=== PATIENT | female | born 2005 | race Caucasian/White ===

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

== ENCOUNTER 2024-03-11 18:41 | Emergency (ER) | payer BC, OTHER ==
[2024-03-11] MEDS: SODIUM CHLORIDE 0.9% 1,000 ML IV STA (19:18)
--- NOTE | 2024-03-11 19:38 | ED ---
Dizziness HPI - General Chief Complaint: Dizziness Stated Complaint: Near syncope, dizziness, vomiting, memory loss Time Seen by Provider: 03/11/24 18:55 Source: patient, family, RN notes reviewed Mode of arrival: ambulatory Limitations: no limitations - History of Present Illness Initial Comments: This is a 18-year-old female with no significant past medical history who presents emergency department chief complaint of near syncope. 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 Patient states that she was helped down the next day and began to experience double vision, ringing in her ears. Patient denies passing out at this time. Currently, patient states that she is feeling well. She denies symptoms of chest pain, chest pressure, palpitations, dizziness, lightheadedness or fatigue. States that she has a mild headache. Patient states that she did symptoms like this previously before while she was at a track meet. She states that she has not consumed much water today. - Related Data Home Medications Medication Instructions Recorded Confirmed Fluticasone Nasal [place] [Flonase 2 spr EA NOSTRIL HS 01/22/21 01/24/21 Nasal [place]] Loratadine [Claritin] 10 mg PO HS 01/22/21 01/24/21 Montelukast Sodium [Singulair] 10 mg PO HS 01/22/21 01/24/21 Calcium Carbonate [Calcium] 190 mg PO TID 01/24/21 01/24/21 Previous Rx's Medication Instructions Recorded HYDROcodone/APAP 5-325MG [[place] 1 tab PO Q6HR PRN 7 Days #30 tab 01/24/21 5-325] Allergies Allergy/AdvReac Type Severity Reaction Status Date / Time grass pollen Allergy Rash/Hives Verified 03/11/24 18:47 mold Allergy Unknown Verified 03/11/24 18:47 Review of Systems ROS Statement: Those systems with pertinent positive or pertinent negative responses have been documented in the HPI. ROS Other: All systems not noted in ROS Statement are negative. Past Medical History Additional Past Medical History / Comment(s): seasonal allergies. calcium deficiency History of Any Multi-Drug Resistant Organisms: None Reported Past Surgical History: Ear Surgery Additional Past Surgical History / Comment(s): ear tubes x3 Past Anesthesia/Blood Transfusion Reactions: Postoperative Nausea & Vomiting (PO NV) Past Psychological History: No Psychological Hx Reported Smoking Status: Never smoker Past Alcohol Use History: None Reported Past Drug Use History: None Reported - Past Family History Mother Family Medical History: No Reported History General Exam Limitations: no limitations General appearance: alert, in no apparent distress Head exam: Present: atraumatic, normocephalic, normal inspection Eye exam: Present: normal appearance, PERRL, EOMI. Absent: scleral icterus, conjunctival injection, periorbital swelling ENT exam: Present: normal exam, mucous membranes moist Neck exam: Present: normal inspection. Absent: tenderness, meningismus, lymphadenopathy Respiratory exam: Present: normal lung sounds bilaterally. Absent: respiratory distress, wheezes, rales, rhonchi, stridor Cardiovascular Exam: Present: regular rate, normal rhythm, normal heart sounds. Absent: systolic murmur, diastolic murmur, rubs, gallop, clicks GI/Abdominal exam: Present: soft, normal bowel sounds. Absent: distended, tenderness, guarding, rebound, rigid Extremities exam: Present: normal inspection, full ROM, normal capillary refill. Absent: tenderness, pedal edema, joint swelling, calf tenderness Back exam: Present: normal inspection Neurological exam: Present: alert, oriented X3, CN II-XII intact Psychiatric exam: Present: normal affect, normal mood Skin exam: Present: warm, dry, intact, normal color. Absent: rash Course Vital Signs 03/11/24 03/11/24 03/11/24 18:43 20:18 20:58 Temperature 98.3 F 98.6 F Pulse Rate 63 55 L 56 L Respiratory 18 16 12 Rate Blood Pressure 144/89 141/76 130/81 O2 Sat by Pulse 100 100 100 Oximetry Medical Decision Making - Medical Decision Making Was pt. sent in by a medical professional or institution (, PA, CSW, urgent care, hospital, or half-way...) When possible be specific @ -No Did you speak to anyone other than the patient for history (EMS, parent, family, police, friend...)? What history was obtained from this source @ -spoke to the patient's mother at bedside who denies personal history of the patient of general heart disease and denies family history of congenital heart disease or sudden cardiac . Did you review nursing and triage notes (agree or disagree)? Why? @ -I reviewed and agree with nursing and triage notes Were old charts reviewed (outside hosp., previous admission, EMS record, old EKG, old radiological studies, urgent care reports/EKG's, half-way records)? Report findings @ -No old charts were reviewed Differential Diagnosis (chest pain, altered mental status, abdominal pain women, abdominal pain men, vaginal bleeding, weakness, fever, dyspnea, syncope, headache, dizziness, GI bleed, back pain, seizure, CVA, palpatations, mental health, musculoskeletal)? @ -Differential Syncope: Valvular disease, hypertrophic cardiomyopathy, pulmonary embolism, tamponade, tachycardia, bradycardia, [place], hypovolemia, hemorrhage, dissection, anemia, intracranial hemorrhage, seizure, hypoglycemia, carbon monoxide poisoning, this is not meant to be an all-inclusive list. EKG interpreted by me (3pts min.). @ -completed at 1928: sinus bradycardia, ventricular rate 57, VT interval 156, QTc 450. No acute signs of ischemia. X-rays interpreted by me (1pt min.). @ -None done CT interpreted by me (1pt min.). @ -None done U/S interpreted by me (1pt. min.). @ -None done What testing was considered but not performed or refused? (CT, X-rays, U/S, labs)? Why? @ -None What meds were considered but not given or refused? Why? @ -None Did you discuss the management of the patient with other professionals (professionals i.e. , PA, CSW, lab, RT, psych nurse, social professionals, tin container straightener, teacher, fisheries technical officer, rn case manager hospice)? Give summary @ -No Was smoking cessation discussed for >3mins.? @ -No Was critical care preformed (if so, how long)? @ -No Were there social determinants of health that impacted care today? How? (Homelessness, low income, unemployed, alcoholism, drug addiction, tr ansportation, low edu. Level, literacy, decrease access to med. care, prison, rehab)? @ -No Was there de-escalation of care discussed even if they declined (Discuss DNR or withdrawal of care, Hospice)? DNR status @ -No What co-morbidities impacted this encounter? (DM, HTN, Smoking, COPD, CAD, Cancer, CVA, ARF, Chemo, Hep., AIDS, mental health diagnosis, sleep apnea, morbid obesity)? @ -None Was patient admitted / discharged? Hospital course, mention meds given and route, prescriptions, significant lab abnormalities, going to OR and other pertinent info. @ -Discharged. 17-year-old female with no syncope. Patient is resting comfortably on room air no signs of acute distress. She states that she is feeling markedly better after the event that occurred this afternoon. She is symptomatically treated with fluids with concern for dehydration pending labs. EKG showing sinus rhythm with no acute signs of ischemia. Reveal a mild anemia with a hemoglobin of 10.9 and MCV low at 76.7. CMP unremarkable. Urinalysis without signs infection, hCG negative. On reevaluation the patient after fluid she states that she is feeling much better headache has resolved. Recommend the patient follows up with her primary care provider due to findings of mild anemia. All questions answered at bedside and strict return. Discussed with patient she is verbalized understanding. Case discussed with Dr. Galaviz Undiagnosed new problem with uncertain prognosis? @ -No Drug Therapy requiring intensive monitoring for toxicity (Heparin, Nitro, Insulin, Cardizem)? @ -No Were any procedures done? @ -No Diagnosis/symptom? @ -Near-syncope Acute, or Chronic, or Acute on Chronic? @ -Acute Uncomplicated (without systemic symptoms) or Complicated (systemic symptoms)? @ -Uncomplicated Side effects of treatment? @ -No Exacerbation, Progression, or Severe Exacerbation? @ -No Poses a threat to life or bodily function? How? (Chest pain, [place], [place], pneumonia, PE, COPD, DKA, ARF, appy, cholecystitis, CVA, Diverticulitis, Homicidal, Suicidal, threat to staff... and all critical care pts) @ -No - Lab Data Result diagrams: 03/11/24 19:19 03/11/24 19:19 Lab Results 03/11/24 03/11/24 03/11/24 Range/Units 19:19 19:19 20:03 WBC 7.3 (4.0-11.0) k/uL RBC 4.52 (3.80-5.40) m/uL Hgb 10.9 L (11.4-16.0) gm/dL Hct 34.7 (34.0-46.0) % MCV 76.7 L (80.0-100.0) fL MCH 24.1 L (25.0-35.0) pg MCHC 31.4 (31.0-37.0) g/dL RDW 14.8 (11.5-15.5) % Plt Count 254 (150-450) k/uL MPV 10.0 Neutrophils % 69 % Lymphocytes % 20 % Monocytes % 8 % Eosinophils % 1 % Basophils % 1 % Neutrophils # 5.0 (1.3-7.7) k/uL Lymphocytes # 1.4 (1.0-4.8) k/uL Monocytes # 0.6 (0-1.0) k/uL Eosinophils # 0.1 (0-0.7) k/uL Basophils # 0.1 (0-0.2) k/uL Hypochromasia Marked Sodium 140 (137-145) mmol/L Potassium 4.2 (3.5-5.1) mmol/L Chloride 106 (98-107) mmol/L Carbon Dioxide 26 (22-30) mmol/L Anion Gap 8 mmol/L BUN 13 (7-17) mg/dL Creatinine 0.70 (0.52-1.04) mg/dL Est GFR (CKD-EPI)AfAm >90 (>60 ml/min/1.73 sqM) Est GFR (CKD-EPI)NonAf >90 (>60 ml/min/1.73 sqM) Glucose 97 (74-99) mg/dL Calcium 10.0 (8.4-10.2) mg/dL Total Bilirubin 0.5 (0.2-1.3) mg/dL AST 32 (14-36) U/L ALT 16 (4-34) U/L Alkaline Phosphatase 51 (38-126) U/L Total Protein 7.7 (6.3-8.2) g/dL Albumin 5.0 (3.5-5.0) g/dL Urine Color Colorless Urine Appearance Clear (Clear) Urine pH 5.5 (5.0-8.0) Ur Specific [place] 1.010 (1.001-1.035) Urine Protein Negative (Negative) Urine Glucose (UA) Negative (Negative) Urine Ketones Negative (Negative) Urine Blood Negative (Negative) Urine Nitrite Negative (Negative) Urine Bilirubin Negative (Negative) Urine Urobilinogen <2.0 (<2.0) mg/dL Ur Leukocyte Esterase Negative (Negative) Urine HCG, Qual (Not Detectd) 03/11/24 Range/Units 20:03 WBC (4.0-11.0) k/uL RBC (3.80-5.40) m/uL Hgb (11.4-16.0) gm/dL Hct (34.0-46.0) % MCV (80.0-100.0) fL MCH (25.0-35.0) pg MCHC (31.0-37.0) g/dL RDW (11.5-15.5) % Plt Count (150-450) k/uL MPV Neutrophils % % Lymphocytes % % Monocytes % % Eosinophils % % Basophils % % Neutrophils # (1.3-7.7) k/uL Lymphocytes # (1.0-4.8) k/uL Monocytes # (0-1.0) k/uL Eosinophils # (0-0.7) k/uL Basophils # (0-0.2) k/uL Hypochromasia Sodium (137-145) mmol/L Potassium (3.5-5.1) mmol/L Chloride (98-107) mmol/L Carbon Dioxide (22-30) mmol/L Anion Gap mmol/L BUN (7-17) mg/dL Creatinine (0.52-1.04) mg/dL Est GFR (CKD-EPI)AfAm (>60 ml/min/1.73 sqM) Est GFR (CKD-EPI)NonAf (>60 ml/min/1.73 sqM) Glucose (74-99) mg/dL Calcium (8.4-10.2) mg/dL Total Bilirubin (0.2-1.3) mg/dL AST (14-36) U/L ALT (4-34) U/L Alkaline Phosphatase (38-126) U/L Total Protein (6.3-8.2) g/dL Albumin (3.5-5.0) g/dL Urine Color Urine Appearance (Clear) Urine pH (5.0-8.0) Ur Specific [place] (1.001-1.035) Urine Protein (Negative) Urine Glucose (UA) (Negative) Urine Ketones (Negative) Urine Blood (Negative) Urine Nitrite (Negative) Urine Bilirubin (Negative) Urine Urobilinogen (<2.0) mg/dL Ur Leukocyte Esterase (Negative) Urine HCG, Qual Not Detected (Not Detectd) Disposition Clinical Impression: Near syncope, Dizziness, Anemia Disposition: HOME SELF-CARE Condition: Good Instructions (If sedation given, give patient instructions): Dizziness (ED), Anemia (ED) Additional Instructions: Return to the emergency department for any new or worsening symptoms. Recommend they follow-up with your primary care provider next week for further evaluation of lab work finding suggestive of anemia. Is patient prescribed a controlled substance at d/c from ED?: No Referrals: Garo Kulkarni MD [Primary Care Provider] - 1-2 days Time of Disposition: 20:46
[2024-03-11 19:47] LABS: ALT 16 U/L (4-34); AST 32 U/L (14-36); African American GFR (CKD) >90 (>60 ml/min/1.73 sqM); Alkaline Phosphatase 51 U/L (38-126); Anion Gap 8 mmol/L; Blood Urea Nitrogen 13 mg/dL (7-17); Carbon Dioxide 26 mmol/L (22-30); Chloride 106 mmol/L (98-107); Glucose 97 mg/dL (74-99); Non-African American GFR(CKD) >90 (>60 ml/min/1.73 sqM); Potassium 4.2 mmol/L (3.5-5.1); Sodium 140 mmol/L (137-145); Total Bilirubin 0.5 mg/dL (0.2-1.3); Total Protein 7.7 g/dL (6.3-8.2)
[2024-03-11 20:09] LABS: Basophils # (A) 0.1 k/uL (0-0.2); Basophils % (A) 1 %; Eosinophils # (A) 0.1 k/uL (0-0.7); Eosinophils % (A) 1 %; HCT 34.7 % (34.0-46.0); HGB 10.9 gm/dL (11.4-16.0); Hypochromasia Marked; Lymphocytes # (A) 1.4 k/uL (1.0-4.8); Lymphocytes % (A) 20 %; MCH 24.1 pg (25.0-35.0); MCHC 31.4 g/dL (31.0-37.0); MCV 76.7 fL (80.0-100.0); Monocytes # (A) 0.6 k/uL (0-1.0); Monocytes % (A) 8 %; Neutrophils % (A) 69 %; Platelet Count 254 k/uL (150-450); RBC 4.52 m/uL (3.80-5.40); RDW 14.8 % (11.5-15.5); WBC 7.3 k/uL (4.0-11.0)
[2024-03-11 20:33] LABS: Appearance,Urine Clear (Clear); Bilirubin,Urine Negative (Negative); Blood,Urine Negative (Negative); Color,Urine Colorless; Glucose,Urine (UA) Negative (Negative); Ketones,Urine Negative (Negative); Leukocyte Esterase,Urine Negative (Negative); Nitrite,Urine Negative (Negative); PH, Urine 5.5 (5.0-8.0); Protein,Urine Negative (Negative); Urobilinogen,Urine <2.0 mg/dL (<2.0)
[2024-03-11 21:00] VITALS: BP 130/81; PULSE 56; RESP 12; TEMP 98.6
== END 2024-03-11 21:01 | disposition home or self-care (01) ==
LOC: EC 18:41
DX: R55 Syncope and collapse (principal); D64.9 Anemia, unspecified; R42 Dizziness and giddiness; Z91.048 Other nonmedicinal substance allergy status
CPT/HCPCS: 36415; 80053; 81003; 81025; 85025; 93005; 96360; 99284

== ENCOUNTER → 2024-03-31 | Outpatient (CLI) | payer BC ==
--- NOTE | 2024-05-01 11:53 | CA ---
Transthoracic Echo Report Name: Chio Nunez Age: 18 Gender: F : 2005 Exam Date: 03/31/2024 16:36 Exam Location: [facility] Ht (in): 67 Wt (lb): 140 Ordering Physician: Attending/Referring Phys: Linen Keeper Anjelica Monsalve RDCS Procedure CPT: Indications: Cardiac Hx: Technical Quality: Good Contrast 1: Total Dose (mL): Contrast 2: Total Dose (mL): MEASUREMENTS (Male / Female) Normal Values 2D ECHO LV Diastolic Diameter PLAX 4.8 cm 4.2 - 5.9 / 3.9 - 5.3 cm LV Systolic Diameter PLAX 3.1 cm IVS Diastolic Thickness 0.9 cm 0.6 - 1.0 / 0.6 - 0.9 cm LVPW Diastolic Thickness 0.8 cm 0.6 - 1.0 / 0.6 - 0.9 cm LV Relative Wall Thickness 0.4 LVOT Diameter 2.4 cm LV Diastolic Volume MOD BP 165.4 cm??? 67 - 155 / 56 - 104 cm??? LV Systolic Volume MOD BP 56.7 cm??? 22 - 58 / 19 - 49 cm??? LV Ejection Fraction MOD BP 65.7 % >= 55 % LV Cardiac Index MOD BP 4829.7 cm???/min???m??? LV Diastolic Volume MOD 4C 161.4 cm??? LV Systolic Volume MOD 4C 54.0 cm??? LV Ejection Fraction MOD 4C 66.5 % LV Cardiac Index MOD 4C 4769.4 cm???/min???m??? LV Diastolic Length 4C 8.9 cm LV Systolic Length 4C 7.4 cm LV Diastolic Volume MOD 2C 167.9 cm??? LV Systolic Volume MOD 2C 58.5 cm??? LV Ejection Fraction MOD 2C 65.2 % LV Cardiac Index MOD 2C 4862.4 cm???/min???m??? LV Diastolic Length 2C 9.0 cm LV Systolic Length 2C 7.6 cm LA Volume 41.0 cm??? 18 - 58 / 22 - 52 cm??? LA Volume Index 23.6 cm???/m??? 16 - 28 cm???/m??? Ascending Aorta Diameter 2.9 cm DOPPLER AV Peak Velocity 139.6 cm/s AV Peak Gradient 7.8 mmHg AV Mean Velocity 94.9 cm/s AV Mean Gradient 4.1 mmHg AV Velocity Time Integral 29.6 cm LVOT Peak Velocity 103.1 cm/s LVOT Peak Gradient 4.3 mmHg LVOT Velocity Time Integral 20.7 cm LVOT Stroke Volume 96.9 cm??? LVOT Stroke Volume Index 55.8 ml/m??? LVOT Cardiac Index 4306.4 cm???/min???m??? AV Area Cont Eq vti 3.3 cm??? AV Area Cont Eq pk 3.5 cm??? MV Area PHT 4.7 cm??? Mitral E Point Velocity 86.9 cm/s Mitral A Point Velocity 57.2 cm/s Mitral E to A Ratio 1.5 MV Deceleration Time 159.8 ms TR Peak Velocity 223.3 cm/s TR Peak Gradient 19.9 mmHg Right Atrial Pressure 10.0 mmHg Pulmonary Artery Systolic Pressu 29.9 mmHg Right Ventricular Systolic Press 29.9 mmHg PV Peak Velocity 106.8 cm/s PV Peak Gradient 4.6 mmHg FINDINGS Left Ventricle Left ventricular ejection fraction is estimated at 60-65 %. Mildly increased left ventricular systolic volume. Left ventricular wall thickness normal. No obvious regional wall motion abnormalities. Right Ventricle Normal right ventricular size and function. Right ventricular systolic pressure within normal limits. Right Atrium Normal right atrial size. Left Atrium Normal left atrial size. Mitral Valve Structurally normal mitral valve. No mitral stenosis, regurgitation or prolapse. Aortic Valve Trileaflet aortic valve. No aortic valve stenosis or regurgitation. Tricuspid Valve Structurally normal tricuspid valve. No tricuspid stenosis. Trace tricuspid regurgitation. Pulmonic Valve Structurally normal pulmonic valve. No pulmonic stenosis. No pulmonic regurgitation. Pericardium No pericardial effusion. Aorta Normal size aortic root and proximal ascending aorta. CONCLUSIONS Left ventricular ejection fraction 60-65% RVSP 29 No mitral regurgitation Trace tricuspid regurgitation Previewed by: Dr. Priyank Avilez DO (Electronically Signed) Final Date: 01 April 2024 12:37
== END | disposition home or self-care (01) ==
LOC: RADECHMAIN 16:30
PROVIDERS: ATTEND Pediatrics
DX: I36.1 Nonrheumatic tricuspid (valve) insufficiency (principal); R07.9 Chest pain, unspecified; R55 Syncope and collapse; Z82.49 Family history of ischemic heart disease and other diseases of the circulatory system
CPT/HCPCS: 93306